=== PATIENT | female | born 1970 | race Caucasian/White ===

== ENCOUNTER → 2021-02-19 | Outpatient (CLI) | payer BC ==
[2021-02-19 13:24] LABS: CHOLESTEROL 212 mg/dL (<200); LDL CHOLESTEROL 115 mg/dL (9-159); TRIGLYCERIDES 246 mg/dl (<150)
== END | disposition home or self-care (01) ==
LOC: LAB 12:36
PROVIDERS: ATTEND Internal Medicine
DX: I10 Essential (primary) hypertension (principal); E78.5 Hyperlipidemia, unspecified; F32.9 Major depressive disorder, single episode, unspecified

== ENCOUNTER → 2022-03-31 | Outpatient (CLI) | payer BC ==
[2022-03-31 10:05] LABS: BASO % 0.3 % (0.0-1.0); EOS # 0.1 10*3/uL (0.0-0.4); EOS % 1.2 % (1.0-4.0); HEMATOCRIT 47.7 % (37.0-47.0); LYMPH # 1.4 10*3/uL (1.3-4.4); LYMPH % 20.8 % (27.0-41.0); MEAN CELL VOLUME 91.2 fl (81.0-99.0); MEAN CORPUSCULAR HGB 30.2 pg (27.0-31.0); MEAN CORPUSCULAR HGB CONC 33.1 g/dl (33.0-37.0); MEAN PLATELET VOLUME 9.5 fl (9.6-12.3); MONO # 0.3 10*3/uL (0.1-1.0); MONO % 4.8 % (3.0-9.0); NEUT # 4.8 10*3/uL (2.3-7.9); NEUT % 72.6 % (47.0-73.0); PLATELET COUNT AUTOMATED 294 10*3/uL (130-400); RED BLOOD COUNT 5.23 10*6/uL (4.10-5.10); WHITE BLOOD COUNT 6.6 10*3/uL (4.8-10.8)
[2022-03-31 10:35] LABS: FREE T4 1.22 ng/dl (0.76-1.46)
[2022-03-31 10:37] LABS: BUN 14 mg/dl (7-24); CHLORIDE 103 mmol/L (98-107); CREATININE 0.77 mg/dL (0.55-1.02); POTASSIUM 3.8 mmol/L (3.5-5.1); SGOT/AST 16 IU/L (3-35); SGPT/ALT 25 U/L (12-78); SODIUM 141 mmol/L (136-145)
[2022-03-31 10:39] LABS: ALKALINE PHOSPHATASE 66 U/L (45-117); TOTAL PROTEIN 7.3 gm/dL (6.4-8.2)
[2022-03-31 10:41] LABS: THYROID STIM HORMONE (HS) 0.949 uIU/ml (0.358-4.75)
[2022-04-01 04:06] LABS: FOLLICLE STIMULATING HORMONE 8.5 mIU/mL (.)
== END | disposition home or self-care (01) ==
LOC: LAB 09:27
PROVIDERS: Clinical Nurse Specialist Adult Health; Family Medicine; ATTEND Obstetrics & Gynecology
DX: N95.1 Menopausal and female climacteric states (principal); R11.0 Nausea; E78.5 Hyperlipidemia, unspecified; R53.83 Other fatigue

== ENCOUNTER → 2022-05-11 | Outpatient (CLI) | payer BC ==
[2022-05-11 09:35] LABS: FREE T4 1.04 ng/dl (0.76-1.46)
[2022-05-11 09:39] LABS: THYROID STIM HORMONE (HS) 1.03 uIU/ml (0.358-4.75)
[2022-05-17 18:06] LABS: METANEPHRINE, PLASMA <10.0 pg/mL (0.0-88.0)
== END | disposition home or self-care (01) ==
LOC: LAB 08:20
PROVIDERS: ATTEND General Practice
DX: F41.9 Anxiety disorder, unspecified (principal)

== ENCOUNTER → 2022-05-14 | Outpatient (CLI) | payer BC | END | disposition home or self-care (01) | LOC: LAB 08:47 | PROVIDERS: ATTEND General Practice | DX: F41.9 Anxiety disorder, unspecified (principal) ==